=== PATIENT | female | born 1990 | race Caucasian/White ===

== ENCOUNTER 2020-05-09 07:30 | Inpatient (IN) | payer SELFPAY ==
[2020-05-09] MEDS ORDERED: Sodium Chloride 0.9% 10 ML Syringe FLUSH PRN (20:11)
[2020-05-09] MEDS ORDERED: Acetaminophen 325 MG Tab PO PRN (20:11)
[2020-05-09] MEDS ORDERED: Nalbuphine 10 MG/ML Syringe IVPUSH PRN (20:11)
[2020-05-09] MEDS ORDERED: Ondansetron 4 MG/2 ML SDV IVPUSH PRN (20:11)
[2020-05-09] MEDS ORDERED: Calcium Carbonate 500 MG Tab.Chew PO PRN (20:11)
[2020-05-09] MEDS ORDERED: Lidocaine 1% 50 ML MDV INJECT ONE (20:11)
[2020-05-09] MEDS ORDERED: Sodium Chloride 0.9% 10 ML SDV IV PRN (20:11)
[2020-05-09] MEDS ORDERED: Oxytocin/Lactated Ringers 10 UNIT/1,000 ML BAG IV SCH (20:15)
[2020-05-09] MEDS ORDERED: Lactated Ringers 1,000 ML IV SCH (20:15)
--- NOTE | 2020-05-09 20:30 | PCM.LDHP ---
L&D History of Present Illness - General Date of Service: 05/09/20 Admit Problem/Dx: Patient Status Order with Admit Dx/Problem 05/09/20 20:12 Patient Status [ADT] Routine Admission Diagnosis/Problem Admission Diagnosis/Problem Source of Information: Patient History Limitations: Reports: No Limitations - History of Present Illness Introduction:: 29 year old primip at 41+6 days gestation with EDC of 04/26/20 admitted for induction of labor. She started her care with me and then decided to continue care with a processing specialist at 29 weeks. She did have placenta previa noted with her initial first trimester ultrasound, but it had cleared by her 20 week ultrasound. She had her initial labs done and her blood type is O+ and antibody screen negative. Rubella and varicella antibody tests showed immunity, Syphilis, Hep B and Hep C and HIV tests were negative. Gonorrhea and chlamydia tests were negative. Initial thyroid labs suggested mild hyperthyroidism, but repeat testing showed normal levels. Her 1 hour glucola test was normal at 109. She did come in at 36 weeks and had GBS test done which was negative. Her processing specialist had checked her iron level and told her she was anemic and had her start taking iron supplement. She has not been having any contractions, but baby has been active and she has been feeling more pelvic pressure. Her processing specialist recently started feeling unwell and may have COVID, but she hasn't had contact with her since well before she started feeling unwell. I had her come into the clinic this afternoon and did a NST which was reactive. Cervix was 3-4 cm, 75% effaced, vertex and station -1 to 0. Discussed options for induction with her and her and they elected to be admitted tonight and will plan to do AROM. I did explain that if that does not get her labor started then we would need to start pitocin IV. She plans to breastfeed her baby. They do not plan to immunize baby. - Related Data Allergies/Adverse Reactions: Allergies Allergy/AdvReac Type Severity Reaction Status Date / Time No Known Allergies Allergy Verified 05/09/20 20:25 Home Medications: Home Meds Ferrous Sulfate [Iron] 325 mg PO DAILY 05/09/20 [History] No122/Iron/Folic Acid [ Multi Tablet] 1 each PO DAILY 05/09/20 [History] Past Medical History Musculoskeletal History: Reports: Other (See Below) (History of left knee surgery) Psychiatric History: Reports: Anxiety Social & Family History - Tobacco Use Tobacco Use Status *Q: Former Tobacco User (quit 3 years ago) Tobacco Use Within Last Twelve Months: No - Alcohol Use Alcohol Use History: No - Recreational Drug Use Recreational Drug Use: No Drug Use in Last 12 Months: No Recreational Drug Type: Reports: Marijuana/Hashish Recreational Drug Use Frequency: Not Used In Over 1 Year (Last used 3 years ago) Recreational Drug Last Use: 3 years ago - Living Situation & Occupation Living situation: Reports: H&P Review of Systems - Review of Systems: Review Of Systems: See Below General: Reports: No Symptoms HEENT: Reports: No Symptoms Pulmonary: Reports: No Symptoms Cardiovascular: Reports: No Symptoms Gastrointestinal: Reports: No Symptoms Genitourinary: Reports: No Symptoms Musculoskeletal: Reports: No Symptoms Skin: Reports: No Symptoms Psychiatric: Reports: No Symptoms Neurological: Reports: No Symptoms Hematologic/Lymphatic: Reports: No Symptoms Immunologic: Reports: No Symptoms L&D Exam - Exam Exam: See Below - OB Specific Contraction Intensity: Irritability (Some tightenings noted on toco, but patient is not feeling them) Movement: Active Heart Tones: Present Heart Tones per Min: 140 Heart Rate (FHR) Variability: Moderate (6-25 bmp) Presentation: Vertex - Coello Score Coello Score Cervix Position: Anterior Coello Score Consistency: Soft Coello Score Effacement: 51-70% Coello Score Dilation: 3-4 cm Coello Score Infant's Station: -1 ,0 Coello Score Total: 10 - Exam General: Alert, Oriented HEENT: Conjunctiva Clear, Mucosa Moist & [place], Pupils Equal Neck: Supple, Trachea Midline Lungs: Normal Respiratory Effort Cardiovascular: Regular Rate, Regular Rhythm GI/Abdominal Exam: Normal Bowel Sounds, Soft Rectal Exam: Deferred Genitourinary: Normal external exam, Cervical dilitation Back Exam: Normal Inspection, Full Range of Motion Extremities: Normal Inspection, No Pedal Edema Skin: Warm, Dry, Intact Neurological: Cranial Nerves Intact Psychiatric: Alert, Normal Affect, Normal Mood - Problem List (1) Post-dates SNOMED Code(s): 96421678 ICD Code: O48.0 - POST-TERM Status: Acute Current Visit: Yes (2) Encounter for induction of labor SNOMED Code(s): 597698393 ICD Code: Z34.90 - ENCNTR FOR SUPRVSN OF NORMAL , UNSP, UNSP TRIMESTER Status: Acute Current Visit: Yes Problem List Initiated/Reviewed/Updated: Yes Orders Last 24hrs: Active Orders 24 hr Category Date Time Status Patient Status [ADT] Routine ADT 05/09/20 20:12 Ordered Activity as Tolerated [RC] PFP Care 05/09/20 20:12 Ordered Communication Order [RC] ASDIRECTED Care 05/09/20 20:12 Ordered Heart Tones [RC] ASDIRECTED Care 05/09/20 20:12 Ordered Non Stress Test [RC] PER UNIT ROUTINE Care 05/09/20 20:12 Ordered Intake and Output [RC] QSHIFT Care 05/09/20 20:13 Ordered Notify Provider [RC] PFP Care 05/09/20 20:12 Ordered Notify Provider [RC] PRN Care 05/09/20 20:12 Ordered Peripheral IV Care [RC] . DIRECTED Care 05/09/20 20:12 Ordered Vital Signs [RC] PER UNIT ROUTINE Care 05/09/20 20:12 Ordered Regular Diet [DIET] Diet 05/09/20 Dinner Ordered BASIC METABOLIC PANEL,BMP [CHEM] Stat Lab 05/09/20 20:11 Ordered CBC W/O DIFF,HEMOGRAM [HEME] Stat Lab 05/09/20 20:11 Ordered CORONAVIRUS COVID-19 SHAYLA [MOLEC] Stat Lab 05/09/20 20:16 Ordered MAGNESIUM [CHEM] Stat Lab 05/09/20 20:17 Ordered RAPID PLASMA REAGIN,RPR [CHEM] Routine Lab 05/09/20 20:12 Ordered TYPE AND SCREEN [BBK] Stat Lab 05/09/20 20:11 Ordered Acetaminophen [TylenoL] Med 05/09/20 20:11 Ordered 650 mg PO Q4H PRN Calcium Carbonate [Tums] Med 05/09/20 20:11 Ordered 1,000 mg PO Q2H PRN Lactated Ringers [Ringers, Lactated] 1,000 ml Med 05/09/20 20:15 Ordered IV ASDIRECTED Lidocaine 1% [Xylocaine 1%] Med 05/09/20 20:11 Once 20 ml INJECT ONETIME ONE Nalbuphine [Nubain] Med 05/09/20 20:11 Ordered 10 mg IVPUSH Q2H PRN Ondansetron [Zofran] Med 05/09/20 20:11 Ordered 4 mg IVPUSH Q4H PRN Oxytocin/Lactated Ringers [Pitocin in LR 10 Units/1,000 Med 05/09/20 20:15 Ordered ML] 10 unit in 1,000 ml IV .CONTINUOUS Sodium Chloride 0.9% [Normal Saline] Med 05/09/20 20:11 Ordered 10 ml IV ASDIRECTED PRN Sodium Chloride 0.9% [Saline Flush] Med 05/09/20 20:11 Ordered 10 ml FLUSH ASDIRECTED PRN Electronic Heart Tones Ext w TOCO [WOMSER] Oth 05/09/20 20:12 Ordered Routine Electronic Heart Tones Internal [WOMSER] Per Unit Oth 05/09/20 20:12 Ordered Routine Peripheral IV Insertion Adult [OM.PC] Routine Oth 05/09/20 20:12 Ordered Telemetry Monitoring [WOMSER] Routine Ot 05/09/20 20:11 Ordered Resuscitation Status Routine Resus Stat 05/09/20 20:11 Ordered Assessment/Plan Comment:: 29 year old primip at 41+6 weeks gestation admitted for induction of labor. GBS negative. Favorable cervix at 3-4 cm dilated, 75% effaced, station -1 to 0. NST reactive. Blood type O positive. Was following with a processing specialist at the end of the , hoping to have a home delivery, but did not go into labor. Plan: AROM performed to induce labor and clear fluid noted. If she does not kick into labor after AROM, will start pitocin induction per protocol Anticipate vaginal delivery. Plans to breastfeed, does not plan to vaccinate.
[2020-05-10] MEDS ORDERED: Ondansetron 4 MG/2 ML SDV IVPUSH PRN (06:54)
[2020-05-10] MEDS ORDERED: ePHEDrine 50 MG/ML SDV IVPUSH PRN (06:54)
[2020-05-10] MEDS ORDERED: fentaNYL 100 MCG/2 ML SDV EPIDUR PRN (06:54)
[2020-05-10] MEDS ORDERED: Bupivacaine/fentaNYL/NS 100 ML Bag EPIDUR SCH (07:00)
--- NOTE | 2020-05-10 07:00 | PCM.PREANE ---
Preanesthetic Assessment - Procedure Proposed Procedure: Epidural - Anesthesia/Transfusion/Family Hx Anesthesia History: Prior Anesthesia Without Reaction Family History of Anesthesia Reaction: No Transfusion History: No Prior Transfusion(s) Intubation History: Unknown - Review of Systems Pulmonary: No Symptoms (Former smoker: marijuana-) Other: Reports: Anxiety - Physical Assessment NPO Status Date: 05/10/20 Vital Signs: Last Vital Signs Temp 37.1 C 05/09/20 19:30 Pulse 101 H 05/09/20 19:30 Resp 16 05/09/20 19:30 BP 138/85 05/09/20 19:30 Pulse Ox 98 05/09/20 19:30 Height: 1.68 m Weight: 82.1 kg ASA Class: 2 Mental Status: Alert & Oriented x3 - Lab Values: Laboratory Last Values WBC 11.69 K/mm3 (3.98-10.04) H 05/09/20 20:28 RBC 4.53 M/mm3 (3.98-5.22) 05/09/20 20:28 Hgb 13.4 gm/dl (11.2-15.7) 05/09/20 20:28 Hct 41.4 % (34.1-44.9) 05/09/20 20:28 MCV 91.4 fl (79.4-94.8) 05/09/20 20:28 MCH 29.6 pg (25.6-32.2) 05/09/20 20:28 MCHC 32.4 g/dl (32.2-35.5) 05/09/20 20:28 RDW Std Deviation 48.0 fL (36.4-46.3) H 05/09/20 20:28 Plt Count 252 K/mm3 (182-369) 05/09/20 20:28 MPV 10.3 fl (9.4-12.3) 05/09/20 20:28 Sodium 137 mEq/L (136-145) 05/09/20 20:28 Potassium 3.5 mEq/L (3.5-5.1) 05/09/20 20:28 Chloride 101 mEq/L (98-107) 05/09/20 20:28 Carbon Dioxide 26 mEq/L (21-32) 05/09/20 20:28 Anion Gap 13.5 (5-15) 05/09/20 20:28 BUN 8 mg/dL (7-18) 05/09/20 20: Creatinine 0.7 mg/dL (0.55-1.02) 05/09/20 20: Est Cr Clr Drug Dosing 113.01 mL/min 05/09/20 20:28 Estimated GFR (MDRD) > 60 mL/min (>60) 05/09/20 20: BUN/Creatinine Ratio 11.4 (14-18) L 05/09/20: Glucose 99 mg/dL (74-106) 05/09/20 20: Calcium 9.7 mg/dL (8.5-10.1) 05/09/20 20: Magnesium 1.8 mg/dl (1.8-2.4) 05/09/20 20: Urine Opiates Screen Negative (RWVPPY=753) 05/09/20 20:24 Ur Buprenorphine Scrn Negative (CUTOFF=10) 05/09/20 20:24 Ur Oxycodone Screen Negative (ETW6AC=459) 05/09/20 20: Urine Methadone Screen Negative (CIPDCG=838) 05/09/20 20:24 Ur Propoxyphene Screen Negative (VZHBUO=227) 05/09/20 20:24 Ur Barbiturates Screen Negative (PVEWTM=835) 05/09/20 20:24 Ur Tricyclics Screen Negative (IUBKEF=405) 05/09/20 20:24 Ur Phencyclidine Scrn Negative (CUTOFF=25) 05/09/20 20:24 Ur Amphetamine Screen Negative (CAIWYD=277) 05/09/20 20:24 U Methamphetamines Scrn Negative (NMLUQO=077) 05/09/20 20:24 U Benzodiazepines Scrn Negative (QRZNHC=267) 05/09/20 20:24 U Cocaine Metab Screen Negative (KLEINX=004) 05/09/20 20:24 U Marijuana (THC) Screen Negative (CUTOFF=50) 05/09/20 20:24 RPR Non-reactive (NONREACTIVE) 05/09/20 20: SARS-CoV-2 RNA (SHAYLA) Negative (NEGATIVE) 05/09/20 19:15 Blood Type O POSITIVE 05/09/20: Gel Antibody Screen Negative 05/09/20: Above labs reviewed and noted and within acceptable ranges to proceed with epidural if desired. 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: Musculoskeletal History: Reports: Other (See Below) (History of left knee surgery) Psychiatric History: Reports: Anxiety - Past Surgical History Musculoskeletal Surgical History: Reports: Other (See Below) Other Musculoskeletal Surgeries/Procedures:: Surgery to left knee - SUBSTANCE USE Tobacco Use Status *Q: Former Tobacco User (quit 3 years ago) Tobacco Use Within Last Twelve Months: No Recreational Drug Use History: No Recreational Drug Type: Reports: Marijuana/Hashish Recreational Drug Last Use: 3 years ago - HOME MEDS Home Medications: Home Meds Ferrous Sulfate [Iron] 325 mg PO DAILY 05/09/20 [History] No122/Iron/Folic Acid [ Multi Tablet] 1 each PO DAILY 05/09/20 [History] - CURRENT (IN HOUSE) MEDS Current Meds: Current Medications Acetaminophen (Tylenol) 650 mg PO Q4H PRN PRN Reason: Pain (Mild 1-3) and fever Calcium Carbonate/Glycine (Tums) 1,000 mg PO Q2H PRN PRN Reason: Indigestion Ephedrine Sulfate (Ephedrine Sulfate) 5 mg IVPUSH ASDIRECTED PRN PRN Reason: Hypotension Fentanyl (Sublimaze) 100 mcg EPIDUR Q3H PRN PRN Reason: Pain Fentanyl/Bupivacaine HCl (Fentanyl/Bupivacaine/Ns 2 Mcg-0.125% 100 Ml) 100 ml EPIDUR ASDIRECTED SEVERINO Oxytocin/Lactated Ringer's (Pitocin In Lr 10 Units/1,000 Ml) 10 unit in 1,000 mls @ 500 mls/hr IV .CONTINUOUS SEVERINO Lactated Ringer's (Ringers, Lactated) 1,000 mls @ 100 mls/hr IV ASDIRECTED SEVERINO Nalbuphine HCl (Nubain) 10 mg IVPUSH Q2H PRN PRN Reason: Pain Ondansetron HCl (Zofran) 4 mg IVPUSH Q4H PRN PRN Reason: Nausea/Vomiting Ondansetron HCl (Zofran) 4 mg IVPUSH ONETIME PRN PRN Reason: Nausea/Vomiting Sodium Chloride (Saline Flush) 10 ml FLUSH ASDIRECTED PRN PRN Reason: Keep Vein Open Sodium Chloride (Normal Saline) 10 ml IV ASDIRECTED PRN PRN Reason: IV Use Discontinued Medications Lidocaine HCl (Xylocaine 1%) 20 ml INJECT ONETIME ONE Stop: 05/09/20 20:12 Miscellaneous Medication (Phenylephrine 1 Mg/10 Ml-Ns) 0 mg IVPUSH ONETIME ONE Stop: 05/10/20 06:55
[2020-05-10] MEDS ORDERED: Lidocaine 1% 50 ML MDV ONE (07:37)
--- NOTE | 2020-05-10 08:26 | PCM.DEL ---
L & D Note - General Info Date of Service: 05/10/20 Mother's Due Date: 04/26/20 - Delivery Note Labor: Induced by ARM Delivery Outcome: Livebirth Infant Delivery Method: Spontaneous Vaginal Delivery-Single Delivery Mode: Spontaneous Presentation: Left Occiput Anterior (JOSLYN) Nuchal Cord: None Prep: Povidone-Iodine (Betadine Anesthesia Type: None Amniotic Fluid Description: Clear Episiotomy Type: None Laceration: 1st Degree, Vaginal (left vaginal side wall sutured and perineal tear sutured) Suture type: Vicryl Suture size: 3-0 Placenta: Spontaneous Cord: 3 Vessels Estimated Blood Loss: 100 Resuscitation Needed: No [place]: Suctioned, Bulb Syringe, Stimulated, Warmed, [place] Used Provider: Cydney Cordoba Score 1 min: 8 Score 5 min: 9 Delivery Comments (Free Text/Narrative):: 29 year old primip at 41+6 days gestation with EDC of 04/26/20 admitted for induction of labor. She started her care with me and then decided to continue care with a washer engineer helper at 29 weeks. She did have placenta previa noted with her initial first trimester ultrasound, but it had cleared by her 20 week ultrasound. She had her initial labs done and her blood type is O+ and antibody screen negative. Rubella and varicella antibody tests showed immunity, Syphilis, Hep B and Hep C and HIV tests were negative. Gonorrhea and chlamydia tests were negative. Initial thyroid labs suggested mild hyperthyroidism, but repeat testing showed normal levels. Her 1 hour glucola test was normal at 109. She did come in at 36 weeks and had GBS test done which was negative. Her washer engineer helper had checked her iron level and told her she was anemic and had her start taking iron supplement. She has not been having any contractions, but baby has been active and she has been feeling more pelvic pressure. Her washer engineer helper recently started feeling unwell and may have COVID, but she hasn't had contact with her since well before she started feeling unwell. I had her come into the clinic this afternoon and did a NST which was reactive. Cervix was 3-4 cm, 75% effaced, vertex and station -1 to 0. Discussed options for induction with her and her and they elected to be admitted tonight and will plan to do AROM. I did explain that if that does not get her labor started then we would need to start pitocin IV. She plans to breastfeed her baby. They do not plan to immunize baby. AROM was performed at about 2000 for clear fluid. She started having contractions after that and got into a good contraction pattern. She did not have an epidural. NST was Category I throughout labor, some early decels at the end of the first stage. She started feeling more pressure and when the RN checked her she was 9 cm dilated and they called me at 0415 to come in. When I checked her about 0430, cervix was complete and station 0 and we had her get set up to start pushing. Baby tolerated second stage of labor. Time of delivery was 0730 from JOSLYN presentation. There was no nuchal cord, shoulders delivered without difficulty. We had a baby girl. She was dried and stimulated, mouth and nose suctioned with bulb syringe. Baby was placed on mother's abdomen and once the cord stopped pulsating, it was clamped and cut. Baby was then placed skin to skin on mother's chest. Pitocin 10 units iv infusion was started after delivery of baby. Placenta delivered spontaneously at 0735 and it was intact, 3 vessels in the cord. There was a small 1st degree perineal laceration that was bleeding and was sutured with 3-0 vicryl with a running stitch after local infiltration with 1% plain lidocaine. There was also a left vaginal side wall tear that was sutured with 3-0 vicryl with a subcuticular stitch. Uterus was firm, a few blood clots expressed after suturing completed. EBL 100 ml. Both Mom and baby were left in the delivery room in stable condition. Baby was latched and nursing by 0810. Induction Criteria - Coello Score Coello Score Dilation: 3-4 cm Coello Score Effacement: 60-70% Coello Score 's Station: -1 ,0 Coello Score Consistency: Soft Coello Score Cervix Position: Anterior Coello Score Total: 10 Coello Score Presenting Part: Reports: Cephalic - Induction Gestational Age >/= 39 wks: Yes Medical Indication: post dates (42 weeks) Estimated Pelvis: Reports: Adequate Reassuring Monitoring Strip: Yes Absence of Tachy Systole: Yes - General Info Date of Service: 05/10/20 Admission Dx/Problem (Free Text): Patient Status Order with Admit Dx/Problem 05/09/20 20:12 Patient Status [ADT] Routine Admission Diagnosis/Problem Admission Diagnosis/Problem Functional Status: Reports: Pain Controlled - Review of Systems General: Reports: No Symptoms HEENT: Reports: No Symptoms Pulmonary: Reports: No Symptoms Cardiovascular: Reports: No Symptoms Gastrointestinal: Reports: No Symptoms Genitourinary: Reports: No Symptoms Musculoskeletal: Reports: Back Pain Skin: Reports: No Symptoms Neurological: Reports: No Symptoms Psychiatric: Reports: No Symptoms - Patient Data Vitals - Most Recent: Last Vital Signs Temp 37.1 C 05/09/20 19:30 Pulse 101 H 05/09/20 19:30 Resp 16 05/09/20 19:30 BP 138/85 05/09/20 19:30 Pulse Ox 98 05/09/20 19:30 Weight - Most Recent: 82.1 kg Lab Results Last 24 Hours: Laboratory Results - last 24 hr 05/09/20 05/09/20 05/09/20 Range/Units 19:15 20:24 20:28 WBC 11.69 H (3.98-10.04) K/mm3 RBC 4.53 (3.98-5.22) M/mm3 Hgb 13.4 (11.2-15.7) gm/dl Hct 41.4 (34.1-44.9) % MCV 91.4 (79.4-94.8) fl MCH 29.6 (25.6-32.2) pg MCHC 32.4 (32.2-35.5) g/dl RDW Std Deviation 48.0 H (36.4-46.3) fL Plt Count 252 (182-369) K/mm3 MPV 10.3 (9.4-12.3) fl Sodium (136-145) mEq/L Potassium (3.5-5.1) mEq/L Chloride (98-107) mEq/L Carbon Dioxide (21-32) mEq/L Anion Gap (5-15) BUN (7-18) mg/dL Creatinine (0.55-1.02) mg/dL Est Cr Clr Drug Dosing mL/min Estimated GFR (MDRD) (>60) mL/min BUN/Creatinine Ratio (14-18) Glucose (74-106) mg/dL Calcium (8.5-10.1) mg/dL Magnesium (1.8-2.4) mg/dl Urine Opiates Screen Negative (MWVYAJ=058) Ur Buprenorphine Scrn Negative (CUTOFF=10) Ur Oxycodone Screen Negative (QVV0GY=667) Urine Methadone Screen Negative (ZFUHZU=990) Ur Propoxyphene Screen Negative (VKKHMA=683) Ur Barbiturates Screen Negative (HCABJK=053) Ur Tricyclics Screen Negative (BJLNHT=115) Ur Phencyclidine Scrn Negative (CUTOFF=25) Ur Amphetamine Screen Negative (AQYWBT=573) U Methamphetamines Scrn Negative (XUHNWC=704) U Benzodiazepines Scrn Negative (EIFDEW=050) U Cocaine Metab Screen Negative (BPASJQ=310) U Marijuana (THC) Screen Negative (CUTOFF=50) RPR (NONREACTIVE) SARS-CoV-2 RNA (SHAYLA) Negative (NEGATIVE) Blood Type Gel Antibody Screen 05/09/20 05/09/20 05/09/20 Range/Units 20:28 20:28 20:28 WBC (3.98-10.04) K/mm3 RBC (3.98-5.22) M/mm3 Hgb (11.2-15.7) gm/dl Hct (34.1-44.9) % MCV (79.4-94.8) fl MCH (25.6-32.2) pg MCHC (32.2-35.5) g/dl RDW Std Deviation (36.4-46.3) fL Plt Count (182-369) K/mm3 MPV (9.4-12.3) fl Sodium 137 (136-145) mEq/L Potassium 3.5 (3.5-5.1) mEq/L Chloride 101 (98-107) mEq/L Carbon Dioxide 26 (21-32) mEq/L Anion Gap 13.5 (5-15) BUN 8 (7-18) mg/dL Creatinine 0.7 (0.55-1.02) mg/dL Est Cr Clr Drug Dosing 113.01 mL/min Estimated GFR (MDRD) > 60 (>60) mL/min BUN/Creatinine Ratio 11.4 L (14-18) Glucose 99 (74-106) mg/dL Calcium 9.7 (8.5-10.1) mg/dL Magnesium 1.8 (1.8-2.4) mg/dl Urine Opiates Screen (OLSMNU=528) Ur Buprenorphine Scrn (CUTOFF=10) Ur Oxycodone Screen (ACH3UG=777) Urine Methadone Screen (NDXDSL=130) Ur Propoxyphene Screen (HPDNON=447) Ur Barbiturates Screen (PBEKZE=524) Ur Tricyclics Screen (CTHGPM=835) Ur Phencyclidine Scrn (CUTOFF=25) Ur Amphetamine Screen (MUAGPO=602) U Methamphetamines Scrn (MCNFYM=785) U Benzodiazepines Scrn (AZCGGX=562) U Cocaine Metab Screen (YUUXIK=587) U Marijuana (THC) Screen (CUTOFF=50) RPR Non-reactive (NONREACTIVE) SARS-CoV-2 RNA (SHAYLA) (NEGATIVE) Blood Type O POSITIVE Gel Antibody Screen Negative Med Orders - Current: Current Medications Acetaminophen (Tylenol) 650 mg PO Q4H PRN PRN Reason: Pain (Mild 1-3) and fever Calcium Carbonate/Glycine (Tums) 1,000 mg PO Q2H PRN PRN Reason: Indigestion Ephedrine Sulfate (Ephedrine Sulfate) 5 mg IVPUSH ASDIRECTED PRN PRN Reason: Hypotension Fentanyl (Sublimaze) 100 mcg EPIDUR Q3H PRN PRN Reason: Pain Fentanyl/Bupivacaine HCl (Fentanyl/Bupivacaine/Ns 2 Mcg-0.125% 100 Ml) 100 ml EPIDUR ASDIRECTED SEVERINO Oxytocin/Lactated Ringer's (Pitocin In Lr 10 Units/1,000 Ml) 10 unit in 1,000 mls @ 500 mls/hr IV .CONTINUOUS SEVERINO Last Admin: 05/10/20 07:42 Dose: 500 mls/hr Documented by: Lactated Ringer's (Ringers, Lactated) 1,000 mls @ 100 mls/hr IV ASDIRECTED SEVERINO Nalbuphine HCl (Nubain) 10 mg IVPUSH Q2H PRN PRN Reason: Pain Ondansetron HCl (Zofran) 4 mg IVPUSH Q4H PRN PRN Reason: Nausea/Vomiting Ondansetron HCl (Zofran) 4 mg IVPUSH ONETIME PRN PRN Reason: Nausea/Vomiting Sodium Chloride (Saline Flush) 10 ml FLUSH ASDIRECTED PRN PRN Reason: Keep Vein Open Sodium Chloride (Normal Saline) 10 ml IV ASDIRECTED PRN PRN Reason: IV Use Discontinued Medications Lidocaine HCl (Xylocaine 1%) 20 ml INJECT ONETIME ONE Stop: 05/09/20 20:12 Last Admin: 05/10/20 07:42 Dose: 50 ml Documented by: Lidocaine HCl (Xylocaine 1%) Confirm Administered Dose 50 ml .ROUTE .STK-MED ONE Stop: 05/10/20 07:38 Last Admin: 05/10/20 07:42 Dose: Not Given Documented by: Miscellaneous Medication (Phenylephrine 1 Mg/10 Ml-Ns) 0 mg IVPUSH ONETIME ONE Stop: 05/10/20 06:55 - Exam General: Alert, Oriented, Cooperative, No Acute Distress HEENT: Pupils Equal, Mucous Membr. Moist/[place] Neck: Supple Lungs: Normal Respiratory Effort Cardiovascular: Regular Rate, Regular Rhythm GI/Abdominal Exam: Normal Bowel Sounds, Soft (Female) Exam: Vaginal Bleeding, Vaginal Tears Back Exam: Normal Inspection, Full Range of Motion Extremities: Normal Inspection, Non-Tender, No Pedal Edema Skin: Warm, Dry, Intact Neurological: No New Focal Deficit Psy/Mental Status: Alert, Normal Affect, Normal Mood - Problem List & Annotations (1) Post-dates SNOMED Code(s): 47962561 Code(s): O48.0 - POST-TERM Status: Acute Current Visit: Yes (2) Encounter for induction of labor SNOMED Code(s): 112290615 Code(s): Z34.90 - ENCNTR FOR SUPRVSN OF NORMAL , UNSP, UNSP TRIMESTER Status: Acute Current Visit: Yes (3) Normal spontaneous vaginal delivery SNOMED Code(s): 57087430, 927878123 Code(s): O80 - ENCOUNTER FOR FULL-TERM UNCOMPLICATED DELIVERY Status: Acute Current Visit: Yes (4) Breast feeding status of mother SNOMED Code(s): 090174427 Code(s): Z39.1 - ENCOUNTER FOR CARE AND EXAMINATION OF LACTATING MOTHER Status: Acute Current Visit: Yes - Problem List Review Problem List Initiated/Reviewed/Updated: Yes - My Orders Last 24 Hours: My Active Orders 05/09/20 Dinner Regular Diet [DIET] 05/09/20 20:11 Acetaminophen [TylenoL] 650 mg PO Q4H PRN Calcium Carbonate [Tums] 1,000 mg PO Q2H PRN Nalbuphine [Nubain] 10 mg IVPUSH Q2H PRN Ondansetron [Zofran] 4 mg IVPUSH Q4H PRN Sodium Chloride 0.9% [Normal Saline] 10 ml IV ASDIRECTED PRN Sodium Chloride 0.9% [Saline Flush] 10 ml FLUSH ASDIRECTED PRN Telemetry Monitoring [WOMSER] Routine Resuscitation Status Routine 05/09/20 20:12 Patient Status [ADT] Routine Activity as Tolerated [RC] PFP Communication Order [RC] ASDIRECTED Heart Tones [RC] ASDIRECTED Notify Provider [RC] PFP Notify Provider [RC] PRN Peripheral IV Care [RC] Q2HR Electronic Heart Tones Ext w TOCO [WOMSER] Routine Electronic Heart Tones Internal [WOMSER] Per Unit Routine Peripheral IV Insertion Adult [OM.PC] Routine 05/09/20 20:13 Intake and Output [RC] QSHIFT 05/09/20 20:15 Lactated Ringers [Ringers, Lactated] 1,000 ml IV ASDIRECTED Oxytocin/Lactated Ringers [Pitocin in LR 10 Units/1,000 ML] 10 unit in 1,000 ml IV .CONTINUOUS 05/10/20 08:04 Patient Status Manage Transfer [TRANSFER] Routine - Assessment Assessment:: after AROM induction of labor at 41+6 weeks gestation. GBS negative. Blood type O+. Did not have epidural. - Plan Plan:: 29 year old primip at 41+6 weeks gestation admitted for induction of labor. GBS negative. Favorable cervix at 3-4 cm dilated, 75% effaced, station -1 to 0. NST reactive. Blood type O positive. Was following with a washer engineer helper at the end of the , hoping to have a home delivery, but did not go into labor. Plan: AROM performed to induce labor and clear fluid noted. If she does not kick into labor after AROM, will start pitocin induction per protocol Anticipate vaginal delivery. Plans to breastfeed, does not plan to vaccinate. 05/10/20: 1. Routine care 2. support and education.
[2020-05-10] MEDS ORDERED: Ibuprofen 800 MG Tab PO PRN (10:09)
[2020-05-10] MEDS ORDERED: Benzocaine/Menthol 20%-0.5% Spray 56 GM Canister TOP PRN (10:09)
[2020-05-10] MEDS ORDERED: Docusate Sodium 100 MG Cap PO PRN (10:09)
[2020-05-10] MEDS ORDERED: Witch Hazel Medicated Pads 40/Jar TOP PRN (10:09)
[2020-05-10] MEDS: Prenatal Multivitamin with Calcium/Folic Acid/Iron Tab PO SCH (18:51)
[2020-05-11] MEDS: Prenatal Multivitamin with Calcium/Folic Acid/Iron Tab PO SCH (07:52)
--- NOTE | 2020-05-11 15:36 | PCM.DCSUM1 ---
Discharge Summary - Hospital Course Free Text/Narrative:: 29 year old primip at 41+6 days gestation with EDC of 04/26/20 admitted for induction of labor. She started her care with me and then decided to continue care with a brass finisher at 29 weeks. She did have placenta previa noted with her initial first trimester ultrasound, but it had cleared by her 20 week ultrasound. She had her initial labs done and her blood type is O+ and antibody screen negative. Rubella and varicella antibody tests showed immunity, Syphilis, Hep B and Hep C and HIV tests were negative. Gonorrhea and chlamydia tests were negative. Initial thyroid labs suggested mild hyperthyroidism, but repeat testing showed normal levels. Her 1 hour glucola test was normal at 109. She did come in at 36 weeks and had GBS test done which was negative. Her brass finisher had checked her iron level and told her she was anemic and had her start taking iron supplement. She has not been having any contractions, but baby has been active and she has been feeling more pelvic pressure. Her brass finisher recently started feeling unwell and may have COVID, but she hasn't had contact with her since well before she started feeling unwell. I had her come into the clinic this afternoon and did a NST which was reactive. Cervix was 3-4 cm, 75% e ffaced, vertex and station -1 to 0. Discussed options for induction with her and her and they elected to be admitted tonight and will plan to do AROM. I did explain that if that does not get her labor started then we would need to start pitocin IV. She plans to breastfeed her baby. They do not plan to immunize baby. AROM was performed at about 2000 for clear fluid. She started having contractions after that and got into a good contraction pattern. She did not have an epidural. NST was Category I throughout labor, some early decels at the end of the first stage. She started feeling more pressure and when the RN checked her she was 9 cm dilated and they called me at 0415 to come in. When I checked her about 0430, cervix was complete and station 0 and we had her get set up to start pushing. Baby tolerated second stage of labor. Time of delivery was 0730 from JOSLYN presentation. There was no nuchal cord, shoulders delivered without difficulty. We had a baby girl. She was dried and stimulated, mouth and nose suctioned with bulb syringe. Baby was placed on mother's abdomen and once the cord stopped pulsating, it was clamped and cut. Baby was then placed skin to skin on mother's chest. Pitocin 10 units iv infusion was started after delivery of baby. Placenta delivered spontaneously at 0735 and it was intact, 3 vessels in the cord. There was a small 1st degree perineal laceration that was bleeding and was sutured with 3-0 vicryl with a running stitch after local infiltration with 1% plain lidocaine. There was also a left vaginal side wall tear that was sutured with 3-0 vicryl with a subcuticular stitch. Uterus was firm, a few blood clots expressed after suturing completed. EBL 100 ml. Both Mom and baby were left in the delivery room in stable condition. Baby was latched and nursing by 0810. She has done well . Some issues with getting baby to wake up and latch to breastfeed, but improving. Vaginal bleeding is light and fundus has been firm. She is ambulating, voiding and has good appetite. Mood has been stable. Has not been using analgesics. She is anxious to be discharged home. Diagnosis: Stroke: No Modified [place] Scale: No Symptoms at All Modified [place] Scale Score: 0 - Discharge Data Discharge Date: 05/11/20 Discharge Disposition: Home, Self-Care 01 Condition: Good - Referral to Home Health Primary Care Physician: Cydney Cordoba MD - Discharge Diagnosis/Problem(s) (1) Post-dates SNOMED Code(s): 63791246 ICD Code: O48.0 - POST-TERM Status: Acute (2) Encounter for induction of labor SNOMED Code(s): 480724815 ICD Code: Z34.90 - ENCNTR FOR SUPRVSN OF NORMAL , UNSP, UNSP TRIMESTER Status: Acute (3) Normal spontaneous vaginal delivery SNOMED Code(s): 40020411, 098651582 ICD Code: O80 - ENCOUNTER FOR FULL-TERM UNCOMPLICATED DELIVERY Status: Acute (4) Breast feeding status of mother SNOMED Code(s): 638606636 ICD Code: Z39.1 - ENCOUNTER FOR CARE AND EXAMINATION OF LACTATING MOTHER Status: Acute - Patient Instructions Diet: Usual Diet as Tolerated, Drink 8-10+ Glasses/Day Feeding Instructions: 1. Feed on demand, watch for feeding cues. 2. Try to wake baby up to nurse if it has been 3 hours since she has fed. 3. Keep track of wet and poopy diapers and bring that to your appointment Activity: As Tolerated Activity, Other: No intercourse for 6 weeks Driving: May Drive Today Showering/Bathing: May Shower Notify Provider of: Fever, Increased Pain, Swelling and Redness, Drainage, Nausea and/or Vomiting - Discharge Plan *PRESCRIPTION DRUG MONITORING PROGRAM REVIEWED*: No *COPY OF PRESCRIPTION DRUG MONITORING REPORT IN PATIENT MERRICK: No Home Medications: Home Meds Ferrous Sulfate [Iron] 325 mg PO DAILY 05/09/20 [History] No122/Iron/Folic Acid [ Multi Tablet] 1 each PO DAILY 05/09/20 [History] Acetaminophen [Tylenol] 650 mg PO Q4H PRN tablet 05/11/20 [Rx] Benzocaine/Menthol [Dermoplast Pain Relief [place]] 1 applic TOP ASDIRECTED PRN canister 05/11/20 [Rx] Ibuprofen [Motrin] 800 mg PO Q6H PRN tablet 05/11/20 [Rx] witrere Ca [Tucks] 1 pad TOP ASDIRECTED PRN pad 05/11/20 [Rx] Oxygen Therapy Mode: Room Air Patient Handouts: and Inducing , Rooming-In With Your [place], Exclusive , Breast Pumping Tips, and Low Milk Supply, and Medicine Use, and Mastitis, and Self-Care, Breast Engorgement, Tips for a Good Latch, and Cracked or Sore Nipples, Eating Plan for Women, Storing Breast Milk - Discharge Summary/Plan Comment DC Time >30 min.: No Discharge Summary/Plan Comment: 29 year old primip with uncomplicated history. She started her care with myself and then starting seeing a brass finisher at 29 weeks, planning a home delivery. She did have all of her testing including 1 hour glucola that was normal and GBS that was negative. She did not have Tdap or Flu immunizations. Blood type O positive. At 41+6 weeks gestation she contacted me asking if I would induce her. Her brass finisher recently had become ill, possibly with COVID. We decided to admit for induction on 05/09/20 at 41+6 weeks gestation. She was 3-4 cm dilated, 75% effaced, vertex and anterior so AROM was performed for induction. Clear fluid was noted. She did start having contractions and went into labor after the AROM. WE did not need to augment with pitocin and she did not have an epidural. Baby tolerated first stage of labor without decels except for some early decels at the end of the first stage. She pushed for 3 hours, taking time to figure out how to push effectively. Baby tolerated second stage of labor as well. Time of delivery was 0730 on 05/10/20 for a baby girl, apgars 8 and 9. No nuchal cord, delayed cord clamping. Placenta delivered spontaneously at 0735, EBL 100ml. Fundus firmed nicely. She did get an IV pitocin infusion after delivery of baby. There was a small 1st degree perineal laceration that was repaired and a left vaginal side wall tear that was repaired. Baby latched and nurse in the delivery room. She has done well , some issues with getting baby to wake up to latch and nurse, but improving. Patient has had mild cramping, but not taking any analgesics for it. Vaginal bleeding has been light, fundus firm, voiding and passing gas. Ambulating and good appetite. Assessment: s/p normal vaginal delivery, normal course. . Plan 1. Routine instructions. 2. Breastfeed on demand. 3. Follow up with Dr. Cordoba in clinic for 6 week visit. - General Info Date of Service: 05/11/20 Admission Dx/Problem (Free Text: Patient Status Order with Admit Dx/Problem 05/09/20 20:12 Patient Status [ADT] Routine Admission Diagnosis/Problem Admission Diagnosis/Problem Functional Status: Reports: Pain Controlled, Tolerating Diet, Ambulating, Urinating - Review of Systems General: Reports: No Symptoms HEENT: Reports: No Symptoms Pulmonary: Reports: No Symptoms Cardiovascular: Reports: No Symptoms Gastrointestinal: Reports: No Symptoms Genitourinary: Reports: No Symptoms Musculoskeletal: Reports: No Symptoms Skin: Reports: No Symptoms Neurological: Reports: No Symptoms Psychiatric: Reports: No Symptoms - Patient Data Vitals - Most Recent: Last Vital Signs Temp 36.1 C 05/11/20 07:54 Pulse 84 05/11/20 07:54 Resp 16 05/11/20 07:54 BP 113/76 05/11/20 07:54 Pulse Ox 98 05/11/20 07:54 Weight - Most Recent: 82.1 kg I&O - Last 24 hours: Intake & Output 05/11/20 05/11/20 05/11/20 06:59 14:59 22:59 Intake Total 180 Balance 180 Lab Results - Last 24 hrs: Laboratory Results - last 24 hr 05/11/20 Range/Units 06:38 WBC 16.72 H (3.98-10.04) K/mm3 RBC 4.14 (3.98-5.22) M/mm3 Hgb 12.4 (11.2-15.7) gm/dl Hct 38.1 (34.1-44.9) % MCV 92.0 (79.4-94.8) fl MCH 30.0 (25.6-32.2) pg MCHC 32.5 (32.2-35.5) g/dl RDW Std Deviation 48.0 H (36.4-46.3) fL Plt Count 248 (182-369) K/mm3 MPV 9.7 (9.4-12.3) fl Med Orders - Current: Current Medications Discontinued Medications Acetaminophen (Tylenol) 650 mg PO Q4H PRN PRN Reason: Pain (Mild 1-3) and fever Benzocaine/Menthol (Dermoplast Pain Relief [place]) 0 gm TOP ASDIRECTED PRN PRN Reason: Perineal Comfort Measure Calcium Carbonate/Glycine (Tums) 1,000 mg PO Q2H PRN PRN Reason: Indigestion Docusate Sodium (Colace) 100 mg PO BID PRN PRN Reason: Constipation Ephedrine Sulfate (Ephedrine Sulfate) 5 mg IVPUSH ASDIRECTED PRN PRN Reason: Hypotension Fentanyl (Sublimaze) 100 mcg EPIDUR Q3H PRN PRN Reason: Pain Fentanyl/Bupivacaine HCl (Fentanyl/Bupivacaine/Ns 2 Mcg-0.125% 100 Ml) 100 ml EPIDUR ASDIRECTED SEVERINO Oxytocin/Lactated Ringer's (Pitocin In Lr 10 Units/1,000 Ml) 10 unit in 1,000 mls @ 500 mls/hr IV .CONTINUOUS SEVERINO Last Admin: 05/10/20 07:42 Dose: 500 mls/hr Documented by: Lactated Ringer's (Ringers, Lactated) 1,000 mls @ 100 mls/hr IV ASDIRECTED SEVERINO Ibuprofen (Motrin) 800 mg PO Q6H PRN PRN Reason: Mild pain or fever Lidocaine HCl (Xylocaine 1%) 20 ml INJECT ONETIME ONE Stop: 05/09/20 20:12 Last Admin: 05/10/20 07:42 Dose: 50 ml Documented by: Lidocaine HCl (Xylocaine 1%) Confirm Administered Dose 50 ml .ROUTE .STK-MED ONE Stop: 05/10/20 07:38 Last Admin: 05/10/20 07:42 Dose: Not Given Documented by: Miscellaneous Medication (Phenylephrine 1 Mg/10 Ml-Ns) 0 mg IVPUSH ONETIME ONE Stop: 05/10/20 06:55 Nalbuphine HCl (Nubain) 10 mg IVPUSH Q2H PRN PRN Reason: Pain Ondansetron HCl (Zofran) 4 mg IVPUSH Q4H PRN PRN Reason: Nausea/Vomiting Ondansetron HCl (Zofran) 4 mg IVPUSH ONETIME PRN PRN Reason: Nausea/Vomiting Prenat Multivit/[place]/Iron/Folic Ac ( Plus Iron) 1 each PO DAILY SEVERINO Last Admin: 05/11/20 07:52 Dose: 1 each Documented by: Sodium Chloride (Saline Flush) 10 ml FLUSH ASDIRECTED PRN PRN Reason: Keep Vein Open Sodium Chloride (Normal Saline) 10 ml IV ASDIRECTED PRN PRN Reason: IV Use Witch Ca (Tucks) 1 pad TOP ASDIRECTED PRN PRN Reason: Perineal Comfort Measure - Exam General: Reports: Alert, Oriented, Cooperative, No Acute Distress HEENT: Reports: Pupils Equal, Mucous Membr. Moist/[place] Neck: Reports: Supple Lungs: Reports: Normal Respiratory Effort Cardiovascular: Reports: Regular Rate, Regular Rhythm GI/Abdominal Exam: Normal Bowel Sounds, No Distention (Female) Exam: Fundal Height (Fundus firm, 1 finger below umbilicus), Vaginal Bleeding Rectal (Female) Exam: Deferred Back Exam: Reports: Normal Inspection, Full Range of Motion Extremities: Normal Inspection, Non-Tender, No Pedal Edema Skin: Reports: Warm, Dry, Intact Wound/Incisions: Reports: Healing Well Neurological: Reports: No New Focal Deficit Psy/Mental Status: Reports: Alert, Normal Affect, Normal Mood
== END 2020-05-11 11:55 | disposition home or self-care (01) | DRG 807 ==
LOC: JD.OB 07:30 → OBSVTOIN 05-10 07:30 → JD.OB 05-10 07:31 → INTOOBSV 05-10 07:39 → OBSVTOIN 05-10 07:39 → JD.OB 05-10 07:40
PROVIDERS: ADMIT Family Medicine; ATTEND Family Medicine
PROC: 10E0XZZ Delivery of Products of Conception, External Approach (ICD-10-PCS; principal; 2020-05-10)
PROC: 10907ZC Drainage of Amniotic Fluid, Therapeutic from Products of Conception, Via Natural or Artificial Opening (ICD-10-PCS; 2020-05-10)
PROC: 0HQ9XZZ Repair Perineum Skin, External Approach (ICD-10-PCS; 2020-05-10)
DX: O48.0 Post-term pregnancy (principal); Z37.0 Single live birth; Z3A.41 41 weeks gestation of pregnancy; O70.0 First degree perineal laceration during delivery; Z87.891 Personal history of nicotine dependence; Z20.828 Contact with and (suspected) exposure to other viral communicable diseases
CPT/HCPCS: 36415; 59025; 59409; 80048; 80306; 83735; 85027; 86592; 86850; 86900; 86901; A9270-GY; J2001; J2590; U0002